=== PATIENT | female | born 1990 | race Caucasian/White ===

== ENCOUNTER 2017-08-24 09:12 | Inpatient (IN) | payer MEDICAID ==
[~2017-08-24] VITALS: Ht 167.6 cm; Wt 100.0 kg
[2017-08-24] MEDS ORDERED: D5%-LACTATED RINGERS 1,000 ML IV SCH (10:02)
[2017-08-24] MEDS ORDERED: LACTATED RINGERS 1,000 ML IV SCH (10:02)
[2017-08-24] MEDS ORDERED: OXYTOCIN 30U/ 0.9% NaCL 500ML 500 ML IV ONE (10:02)
[2017-08-24] MEDS ORDERED: PLEASE ENTER HEIGHT AND WEIGHT MC SCH (10:30)
[2017-08-24] MEDS ORDERED: TERBUTALINE 1 MG/ML, 1ML IVPush PRN (10:30)
[2017-08-24] MEDS ORDERED: FENTANYL PF 100 MCG/2ML IVPush PRN (10:30)
[2017-08-24] MEDS ORDERED: FENTANYL PF 100 MCG/2ML IV PRN (10:30)
[2017-08-24 10:41] LABS: HEMATOCRIT 37.2 % (34.6-47.8); HEMOGLOBIN 12.3 g/dL (11.7-16.4); WHITE BLOOD COUNT 10.5 x10^3/uL (3.4-10)
[2017-08-24 10:52] LABS: DAU SCREEN DISCLAIMER
[2017-08-24 10:53] VITALS: BP 124/88
[2017-08-24] MEDS ORDERED: CALCIUM CARBONATE 500 MG TAB.CHEW ONE (11:23)
[2017-08-24] MEDS ORDERED: CALCIUM CARBONATE 500 MG TAB.CHEW PO PRN (11:30)
[2017-08-24] MEDS ORDERED: LIDOCAINE-MPF 2% ,5ML ONE (13:31)
[2017-08-24] MEDS ORDERED: FENTANYL/BUPIV./NS/PF 250 ML EPIDCONT ONE (13:31)
[2017-08-24] MEDS ORDERED: LIDOCAINE/MPF 2%-EPI 1:200K, 20 ML ONE (13:32)
[2017-08-24] MEDS ORDERED: LIDOCAINE/PF 1.5%-EPI 1:200K, 30ML ONE (13:35)
[2017-08-24] MEDS ORDERED: BUPIVACAINE 0.25% ONE (13:35)
[2017-08-24] MEDS ORDERED: OXYTOCIN 30U/ 0.9% NaCL 500ML 500 ML ONE ×2 (15:11→22:08)
[2017-08-24] MEDS ORDERED: NEWBORN KIT ONE (15:18)
[2017-08-24] MEDS ORDERED: OXYTOCIN 30U/ 0.9% NaCL 500ML 500 ML IV PRN (16:52)
[2017-08-24] MEDS ORDERED: FENTANYL/BUPIV./NS/PF 250 ML EPIDCONT SCH (17:48)
[2017-08-24] MEDS: LACTATED RINGERS 1,000 ML IV SCH (17:48)
[2017-08-24] MEDS ORDERED: NALOXONE 0.4 MG/ML, 1ML IVPush PRN (18:00)
[2017-08-24] MEDS ORDERED: LACTATED RINGERS 1,000 ML IVBOLUS PRN (18:00)
[2017-08-24] MEDS ORDERED: EPHEDRINE 50 MG/ML, 1ML IVPush PRN (18:00)
[2017-08-24] MEDS ORDERED: LIDOCAINE 1%, 20ML ONE (21:17)
[2017-08-24] MEDS ORDERED: OXYTOCIN 30U/ 0.9% NaCL 500ML 500 ML IV SCH (21:26)
[2017-08-24] MEDS ORDERED: ONDANSETRON 2MG/ML, 2ML IV PRN (21:30)
[2017-08-24] MEDS ORDERED: DOCUSATE 100 MG CAPSULE PO PRN (21:30)
[2017-08-24] MEDS ORDERED: MISOPROSTOL 200 MCG TABLET PR PRN (21:30)
[2017-08-24] MEDS ORDERED: IBUPROFEN 600 MG TABLET ONE (21:36)
[2017-08-24] MEDS ORDERED: OXYcodone/APAP 5/325MG TABLET ONE (21:36)
[2017-08-24] MEDS: IBUPROFEN 600 MG TABLET PO PRN (21:41)
[2017-08-24 23:50] VITALS: BP 107/63
[2017-08-25] MEDS: LACTATED RINGERS 1,000 ML IV SCH ×2 (01:48→05:53)
[2017-08-25 03:00] VITALS: BP 95/48
[2017-08-25 05:01] LABS: HEMATOCRIT 29.6 % (34.6-47.8); HEMOGLOBIN 9.8 g/dL (11.7-16.4); WHITE BLOOD COUNT 15.6 x10^3/uL (3.4-10)
[2017-08-25 07:20] VITALS: BP 111/72
[2017-08-25] MEDS ORDERED: PRENATAL VIT/IRON/FA 1 EACH TABLET PO SCH (09:00)
[2017-08-25] MEDS: IBUPROFEN 600 MG TABLET PO PRN (09:31)
[2017-08-25 12:20] VITALS: BP 95/61
[2017-08-25 16:15] VITALS: BP 113/72
[2017-08-25 20:17] VITALS: BP 114/80
[2017-08-26 08:00] VITALS: BP 116/78
[2017-08-26] MEDS ORDERED: IBUP-1222 PO (10:39)
[2017-08-26] MEDS ORDERED: OXYC-302 PO (10:39)
== END 2017-08-26 14:00 | disposition home or self-care (01) | DRG 775 ==
LOC: LDOP 09:12 → LDIP 10:11 → 2NW 23:40 → EDSTATUS 08-26 09:12
PROVIDERS: ADMIT Obstetrics & Gynecology; ATTEND Obstetrics & Gynecology
PROC: 10E0XZZ Delivery of Products of Conception, External Approach (ICD-10-PCS; principal; 2017-08-24)
PROC: 0HQ9XZZ Repair Perineum Skin, External Approach (ICD-10-PCS; 2017-08-24)
PROC: 3E0R3BZ Introduction of Anesthetic Agent into Spinal Canal, Percutaneous Approach (ICD-10-PCS; 2017-08-24)
PROC: 00HU33Z Insertion of Infusion Device into Spinal Canal, Percutaneous Approach (ICD-10-PCS; 2017-08-24)
DX: O70.0 First degree perineal laceration during delivery (principal); Z37.0 Single live birth; Z3A.39 39 weeks gestation of pregnancy
CPT/HCPCS: 36415; 80307; 81001; 85025; 86850; 86900; J3490; G0479; J2590; J3010; J7120

== ENCOUNTER 2017-10-24 18:40 | Emergency (ER) | payer MEDICAID ==
[~2017-10-24] VITALS: Ht 167.6 cm; Wt 93.0 kg
[~2017-10-24 18:40] MED LIST: IBUP-1222 PO; OXYC-302 PO
[2017-10-24] MEDS ORDERED: BENZTROPINE 1 MG/ML, 2 ML IM ONE (19:00)
[2017-10-24] MEDS ORDERED: PLEASE ENTER HEIGHT AND WEIGHT MC SCH (19:00)
[2017-10-24 19:21] LABS: CULTURE INDICATED? NO; HCG UR SG 1.015 (1.003-1.030); MICROSCOPIC NOT IND
[2017-10-24 20:23] VITALS: BP 122/64
== END 2017-10-24 20:26 | disposition home or self-care (01) ==
LOC: ED 20:20
DX: G24.09 Other drug induced dystonia (principal); F41.1 Generalized anxiety disorder
CPT/HCPCS: 81003; 81025; 96372; 99284; J0515

== ENCOUNTER 2019-03-15 13:07 | Inpatient (IN) | payer MEDICAID ==
[~2019-03-15] VITALS: Ht 167.6 cm; Wt 96.7 kg
[2019-03-15] MEDS ORDERED: PHARMACOKINETIC CONSULTATION MC ONE ×2 (13:30→20:30)
[2019-03-15] MEDS ORDERED: SODIUM CHLORIDE FLUSH 10ML SYR IVF ONE (13:30)
[2019-03-15] MEDS ORDERED: SODIUM CHLORIDE 0.9% 1,000ML IVBOLUS ONE (13:30)
[2019-03-15] MEDS ORDERED: HYDROmorphone 1 MG/ML, 1ML INJ IVPush PRN (13:30)
[2019-03-15] MEDS ORDERED: ONDANSETRON 2MG/ML, 2ML IVPush ONE (13:30)
[2019-03-15] MEDS ORDERED: VANCOMYCIN PER PHARMACY IV ONE (13:30)
[2019-03-15] MEDS ORDERED: KETOROLAC 30 MG/1 ML IVPush ONE ×2 (13:30→14:30)
[2019-03-15 13:51] LABS: MEAN CORPUSCULAR HEMOGLOBIN 29.8 pg (27.0-34.8); MEAN CORPUSCULAR HGB CONC 33.1 g/dL (32.4-35.8); MEAN CORPUSCULAR VOLUME 90.1 fL (80-100); MEAN PLATELET VOLUME 8.7 fL (7.4-10.4); PLATELET COUNT 273 x10^3/uL (130-400); RED BLOOD COUNT 4.67 x10^6/uL (3.82-5.3); RED CELL DISTRIBUTION WIDTH 14.3 % (9.6-15.2)
[2019-03-15] MEDS ORDERED: VANCOMYCIN 1,600 MG in SODIUM CHLORIDE 0.9% 250 ML IV ONE (14:00)
[2019-03-15 14:06] LABS: ALANINE AMINOTRANSFERASE 29 U/L (12-78); ANION GAP 12 mmol/L (5-15); CALCIUM 8.5 mg/dL (8.5-10.1); CHLORIDE 103 mmol/L (98-107)
[2019-03-15 14:11] LABS: ALKALINE PHOSPHATASE 77 U/L (45-117); BILIRUBIN,TOTAL 1.7 mg/dL (0.2-1.0); CREATININE 0.72 mg/dL (0.55-1.02); TOTAL PROTEIN 7.4 g/dL (6.4-8.2)
[2019-03-15 14:28] LABS: MD YES
[2019-03-15 14:53] LABS: BAND#(MANUAL) 2.13 x10^3/uL; BANDS%(MANUAL) 10 % (0-7); LYMPH#(MANUAL) 1.49 x10^3/uL (1-3.4); LYMPHS% (MANUAL) 7 % (22-44); MONOS#(MANUAL) 0.21 x10^3/uL (0.3-2.7); MONOS% (MANUAL) 1 % (2-9); SEG#(MANUAL) 17.47 x10^3/uL (1.8-6.8); SEGS% (MANUAL) 82 % (42-75)
[2019-03-15 14:54] LABS: <PLATELET ESTIMATE> ADEQUATE; <PLT MORPHOLOGY> NORMAL PLT MORPH; <RBC MORPHOLOGY> NORMAL
--- NOTE | 2019-03-15 14:57 | NUR ---
multi iv attempts x2 rn fail, md aware. pt tolerates fair
[2019-03-15] MEDS ORDERED: LIDOCAINE PF 2%, 5ML INFIL ONE (16:00)
[2019-03-15] MEDS ORDERED: LIDOCAINE 2%, 10ML INFIL ONE (16:00)
--- NOTE | 2019-03-15 16:43 | NUR ---
to rad for picc placement
[2019-03-15] MEDS ORDERED: OMNIPAQUE 350 MG/ML, 100ML BOTTLE ONE (17:28)
[2019-03-15] MEDS ORDERED: ONDANSETRON 2MG/ML, 2ML ONE (17:33)
[2019-03-15] MEDS ORDERED: KETOROLAC 30 MG/1 ML ONE (17:33)
[2019-03-15] MEDS: SODIUM CHLORIDE 0.9% 1,000 ML IV SCH (18:37)
[2019-03-15] MEDS ORDERED: PIPERACILLIN/TAZO/PMX 3.375GM 50 ML ONE (18:41)
[2019-03-15] MEDS: PIPERACILLIN/TAZO/PMX 3.375GM 50 ML IV SCH (18:46)
--- NOTE | 2019-03-15 18:58 | NUR ---
REPORT RECIEVED FROM COURTNEY GODINEZ. PT SLEEPING ON [facility].
[2019-03-15] MEDS ORDERED: BISACODYL 10 MG SUPP PR PRN (19:00)
[2019-03-15] MEDS ORDERED: ONDANSETRON ODT 4 MG PO PRN (19:00)
[2019-03-15] MEDS ORDERED: ACETAMINOPHEN 325 MG TABLET PO PRN (19:00)
[2019-03-15] MEDS ORDERED: VANCOMYCIN PER PHARMACY MC PRN (19:00)
[2019-03-15] MEDS ORDERED: POLYETHYLENE GLYCOL 17 GM PACKET PO PRN (19:00)
--- NOTE | 2019-03-15 19:15 | NUR ---
ATTEMPTED TO CALL REPORT FOR SECOND TIME. NURSE STATES SHE WILL HAVE TO CALL BACK.
--- NOTE | 2019-03-15 19:31 | NUR ---
REPORT GIVEN TO GUCCI GODINEZ. PT TRANSPORTING TO [phone].
[2019-03-15 19:51] VITALS: BP 104/65
[2019-03-15] MEDS ORDERED: PHARMACOKINETIC MONITORING MC PRN (20:30)
[2019-03-15] MEDS: VANCOMYCIN 1,800 MG in SODIUM CHLORIDE 0.9% 250 ML IV SCH (21:29)
[2019-03-15] MEDS: KETOROLAC 30 MG/1 ML IVPush SCH (21:44)
[2019-03-15] MEDS: HEPARIN 5,000 UNITS/ML, 1ML SQ SCH (21:44)
[2019-03-15 22:28] LABS: MICROSCOPIC AUTO
[2019-03-15 22:29] LABS: AMPHETAMINE SCREEN, URINE Positive (Negative); BARBITURATE SCREEN, URINE Negative (Negative); BENZODIAZEPINE SCREEN, URINE Positive (Negative); CANNABINOID SCREEN, URINE Negative (Negative); COCAINE SCREEN, URINE Positive (Negative); METHADONE SCREEN, URINE Negative (Negative); OPIATE SCREEN, URINE Positive (Negative)
[2019-03-15 22:30] LABS: CULTURE INDICATED? NO
[2019-03-16] MEDS: PIPERACILLIN/TAZO/PMX 3.375GM 50 ML IV SCH ×4 (01:00→18:42)
[2019-03-16 02:00] VITALS: BP 105/62
[2019-03-16] MEDS: SODIUM CHLORIDE 0.9% 1,000 ML IV SCH ×2 (03:00→16:16)
[2019-03-16] MEDS: HEPARIN 5,000 UNITS/ML, 1ML SQ SCH ×3 (03:00→20:58)
[2019-03-16] MEDS: KETOROLAC 30 MG/1 ML IVPush SCH ×4 (03:30→22:46)
[2019-03-16 04:01] LABS: ALANINE AMINOTRANSFERASE 38 U/L (12-78); ALBUMIN 2.4 g/dL (3.4-5.0); ANION GAP 9 mmol/L (5-15); CALCIUM 7.9 mg/dL (8.5-10.1); CHLORIDE 108 mmol/L (98-107); CREATININE 0.65 mg/dL (0.55-1.02)
[2019-03-16 04:04] LABS: ALKALINE PHOSPHATASE 80 U/L (45-117); BILIRUBIN,TOTAL 1.3 mg/dL (0.2-1.0); TOTAL PROTEIN 6.5 g/dL (6.4-8.2)
[2019-03-16 04:18] LABS: MEAN CORPUSCULAR HEMOGLOBIN 29.4 pg (27.0-34.8); MEAN CORPUSCULAR HGB CONC 32.2 g/dL (32.4-35.8); MEAN CORPUSCULAR VOLUME 91.3 fL (80-100); MEAN PLATELET VOLUME 8.9 fL (7.4-10.4); PLATELET COUNT 181 x10^3/uL (130-400); RED BLOOD COUNT 4.49 x10^6/uL (3.82-5.3); RED CELL DISTRIBUTION WIDTH 14.3 % (9.6-15.2)
[2019-03-16 04:52] LABS: MD YES
[2019-03-16 04:57] LABS: <PLATELET ESTIMATE> ADEQUATE; <PLT MORPHOLOGY> NORMAL PLT MORPH; <RBC MORPHOLOGY> NORMAL; BAND#(MANUAL) 1.59 x10^3/uL; BANDS%(MANUAL) 10 % (0-7); LYMPH#(MANUAL) 0.64 x10^3/uL (1-3.4); LYMPHS% (MANUAL) 4 % (22-44); SEG#(MANUAL) 13.67 x10^3/uL (1.8-6.8); SEGS% (MANUAL) 86 % (42-75)
[2019-03-16 06:37] VITALS: BP 119/82
[2019-03-16] MEDS: VANCOMYCIN 1,800 MG in SODIUM CHLORIDE 0.9% 250 ML IV SCH ×2 (08:42→20:57)
[2019-03-16] MEDS: SENNA/DOCUSATE TABLET PO SCH (09:00)
[2019-03-16] MEDS: LACTOBACILLUS CHEW TABLET PO SCH ×3 (09:30→20:57)
[2019-03-16] MEDS: LORazepam 2 MG/ML, 1ML IVPush PRN ×4 (10:12→20:57)
[2019-03-16 13:35] VITALS: BP 131/88
[2019-03-16] MEDS ORDERED: morphine SULFATE 10 MG/ML, 1ML IVPush PRN (14:00)
[2019-03-16 18:38] VITALS: BP 133/88
[2019-03-17 00:45] VITALS: BP 131/84
[2019-03-17] MEDS: LORazepam 2 MG/ML, 1ML IVPush PRN ×4 (00:50→20:06)
[2019-03-17] MEDS: PIPERACILLIN/TAZO/PMX 3.375GM 50 ML IV SCH ×4 (00:50→19:39)
[2019-03-17] MEDS: KETOROLAC 30 MG/1 ML IVPush SCH ×4 (04:08→21:16)
[2019-03-17] MEDS: HEPARIN 5,000 UNITS/ML, 1ML SQ SCH ×3 (04:08→21:16)
[2019-03-17] MEDS: SODIUM CHLORIDE 0.9% 1,000 ML IV SCH ×3 (04:08→22:00)
[2019-03-17 04:57] LABS: BASOPHILS # (AUTO) 0.01 x10^3/uL (0-0.1); BASOPHILS % (AUTO) 0 % (0-1); EOSINOPHILS % (AUTO) 0 % (1-7); LYMPHOCYTES % (AUTO) 4 % (22-44); MD NO; MEAN CORPUSCULAR HEMOGLOBIN 29.1 pg (27.0-34.8); MEAN CORPUSCULAR HGB CONC 32.4 g/dL (32.4-35.8); MEAN CORPUSCULAR VOLUME 89.8 fL (80-100); MEAN PLATELET VOLUME 9.1 fL (7.4-10.4); MONOCYTES % (AUTO) 5 % (2-9); NEUTROPHILS # (AUTO) 13.85 x10^3/uL (1.8-6.8); NEUTROPHILS % (AUTO) 91 % (42-75); PLATELET COUNT 194 x10^3/uL (130-400); RED BLOOD COUNT 4.21 x10^6/uL (3.82-5.3); RED CELL DISTRIBUTION WIDTH 14.1 % (9.6-15.2)
[2019-03-17 05:06] LABS: ALANINE AMINOTRANSFERASE 26 U/L (12-78); ALBUMIN 2.3 g/dL (3.4-5.0); ANION GAP 6 mmol/L (5-15); CALCIUM 8.1 mg/dL (8.5-10.1); CHLORIDE 111 mmol/L (98-107)
[2019-03-17 05:07] LABS: ALKALINE PHOSPHATASE 76 U/L (45-117); BILIRUBIN,TOTAL 0.7 mg/dL (0.2-1.0); TOTAL PROTEIN 6.3 g/dL (6.4-8.2)
[2019-03-17] MEDS: VANCOMYCIN 1,800 MG in SODIUM CHLORIDE 0.9% 250 ML IV SCH ×2 (08:33→21:16)
[2019-03-17 08:39] VITALS: BP 125/82
[2019-03-17] MEDS: SENNA/DOCUSATE TABLET PO SCH (09:00)
[2019-03-17] MEDS: LACTOBACILLUS CHEW TABLET PO SCH ×3 (09:55→20:05)
[2019-03-17] MEDS ORDERED: POTASSIUM CHLORIDE 20 MEQ TAB.ER.PRT PO ONE (10:30)
[2019-03-17] MEDS ORDERED: CHLORDIAZEPOXIDE 25 MG CAPSULE PO SCH (10:30)
[2019-03-17 12:56] VITALS: BP 106/69
[2019-03-17 20:01] VITALS: BP 126/85
[2019-03-18] MEDS: PIPERACILLIN/TAZO/PMX 3.375GM 50 ML IV SCH ×4 (01:21→19:44)
[2019-03-18 04:31] VITALS: BP 126/85
[2019-03-18] MEDS: KETOROLAC 30 MG/1 ML IVPush SCH ×4 (05:04→21:27)
[2019-03-18] MEDS: HEPARIN 5,000 UNITS/ML, 1ML SQ SCH ×3 (05:05→21:27)
[2019-03-18] MEDS: LORazepam 2 MG/ML, 1ML IVPush PRN ×3 (05:05→19:44)
[2019-03-18 05:52] LABS: ANION GAP 6 mmol/L (5-15); CHLORIDE 112 mmol/L (98-107)
[2019-03-18 05:56] LABS: BASOPHILS # (AUTO) 0.03 x10^3/uL (0-0.1); BASOPHILS % (AUTO) 0 % (0-1); EOSINOPHILS # (AUTO) 0.02 x10^3/uL (0-0.4); EOSINOPHILS % (AUTO) 0 % (1-7); LYMPHOCYTES # (AUTO) 1.23 x10^3/uL (1-3.4); LYMPHOCYTES % (AUTO) 11 % (22-44); MD NO; MEAN CORPUSCULAR HEMOGLOBIN 29.1 pg (27.0-34.8); MEAN CORPUSCULAR HGB CONC 32.3 g/dL (32.4-35.8); MEAN CORPUSCULAR VOLUME 89.9 fL (80-100); MEAN PLATELET VOLUME 9.5 fL (7.4-10.4); MONOCYTES % (AUTO) 8 % (2-9); NEUTROPHILS # (AUTO) 9.24 x10^3/uL (1.8-6.8); NEUTROPHILS % (AUTO) 81 % (42-75); PLATELET COUNT 233 x10^3/uL (130-400); RED BLOOD COUNT 4.25 x10^6/uL (3.82-5.3)
[2019-03-18] MEDS ORDERED: POTASSIUM CHLORIDE 20 MEQ TAB.ER.PRT PO ONE (08:30)
[2019-03-18] MEDS: SENNA/DOCUSATE TABLET PO SCH (09:00)
[2019-03-18] MEDS: VANCOMYCIN 1,800 MG in SODIUM CHLORIDE 0.9% 250 ML IV SCH (09:28)
[2019-03-18] MEDS: LACTOBACILLUS CHEW TABLET PO SCH ×3 (09:29→21:27)
[2019-03-18 09:43] VITALS: BP 113/73
[2019-03-18 13:34] VITALS: BP 112/63
[2019-03-18] MEDS: NICOTINE 21 MG/24 HR PATCH.TD24 TD SCH (14:59)
[2019-03-18 18:34] VITALS: BP 116/78
[2019-03-18] MEDS: VANCOMYCIN 2,000 MG in SODIUM CHLORIDE 0.9% 500 ML IV SCH (21:27)
[2019-03-18] MEDS ORDERED: DIPHENHYDRAMINE 50 MG CAPSULE ONE (22:29)
[2019-03-18] MEDS: DIPHENHYDRAMINE 50 MG CAPSULE PO PRN (22:31)
[2019-03-19] MEDS: PIPERACILLIN/TAZO/PMX 3.375GM 50 ML IV SCH ×3 (02:33→15:11)
[2019-03-19] MEDS: LORazepam 2 MG/ML, 1ML IVPush PRN ×4 (02:39→23:32)
[2019-03-19] MEDS: KETOROLAC 30 MG/1 ML IVPush SCH ×4 (05:21→21:45)
[2019-03-19] MEDS: HEPARIN 5,000 UNITS/ML, 1ML SQ SCH ×3 (05:21→21:45)
[2019-03-19 05:29] VITALS: BP 130/89
[2019-03-19 05:56] LABS: BASOPHILS # (AUTO) 0.05 x10^3/uL (0-0.1); BASOPHILS % (AUTO) 0 % (0-1); EOSINOPHILS # (AUTO) 0.03 x10^3/uL (0-0.4); EOSINOPHILS % (AUTO) 0 % (1-7); LYMPHOCYTES # (AUTO) 1.42 x10^3/uL (1-3.4); LYMPHOCYTES % (AUTO) 12 % (22-44); MD NO; MEAN CORPUSCULAR HEMOGLOBIN 28.9 pg (27.0-34.8); MEAN CORPUSCULAR HGB CONC 32.1 g/dL (32.4-35.8); MEAN PLATELET VOLUME 9.2 fL (7.4-10.4); MONOCYTES # (AUTO) 1.02 x10^3/uL (0.2-0.8); MONOCYTES % (AUTO) 9 % (2-9); NEUTROPHILS # (AUTO) 9.16 x10^3/uL (1.8-6.8); NEUTROPHILS % (AUTO) 79 % (42-75); PLATELET COUNT 235 x10^3/uL (130-400); RED BLOOD COUNT 4.21 x10^6/uL (3.82-5.3); RED CELL DISTRIBUTION WIDTH 14.3 % (9.6-15.2)
[2019-03-19 06:12] LABS: ANION GAP 5 mmol/L (5-15); CHLORIDE 112 mmol/L (98-107)
[2019-03-19 06:14] LABS: CREATININE 0.85 mg/dL (0.55-1.02)
[2019-03-19] MEDS ORDERED: POTASSIUM CHLORIDE 20 MEQ TAB.ER.PRT PO ONE (08:00)
[2019-03-19 08:35] VITALS: BP 117/76
[2019-03-19] MEDS: LACTOBACILLUS CHEW TABLET PO SCH ×3 (08:46→21:45)
[2019-03-19] MEDS: SENNA/DOCUSATE TABLET PO SCH (08:46)
[2019-03-19] MEDS: VANCOMYCIN 2,000 MG in SODIUM CHLORIDE 0.9% 500 ML IV SCH (10:00)
[2019-03-19 13:16] VITALS: BP 111/72
[2019-03-19] MEDS: NICOTINE 21 MG/24 HR PATCH.TD24 TD SCH (15:11)
[2019-03-19] MEDS ORDERED: SULF1TAB24 PO (17:27)
[2019-03-19] MEDS ORDERED: CEPH-368 PO (17:27)
[2019-03-19] MEDS ORDERED: ACID1TAB7 PO (17:27)
[2019-03-19 19:57] VITALS: BP 128/87
[2019-03-19] MEDS ORDERED: SULFAMETH./TRIMETHOPRIM DS 800MG/160MG TABLET PO SCH (21:00)
[2019-03-19] MEDS: CEPHALEXIN 500 MG CAPSULE PO SCH (21:45)
[2019-03-19] MEDS: DIPHENHYDRAMINE 50 MG CAPSULE PO PRN (21:45)
[2019-03-20] MEDS: LORazepam 2 MG/ML, 1ML IVPush PRN (04:58)
[2019-03-20] MEDS: KETOROLAC 30 MG/1 ML IVPush SCH ×2 (04:58→09:57)
[2019-03-20] MEDS: HEPARIN 5,000 UNITS/ML, 1ML SQ SCH (04:58)
[2019-03-20] MEDS: CEPHALEXIN 500 MG CAPSULE PO SCH (04:58)
[2019-03-20 05:00] VITALS: BP 128/86
[2019-03-20 08:13] VITALS: BP 114/77
[2019-03-20] MEDS: SENNA/DOCUSATE TABLET PO SCH (08:29)
[2019-03-20] MEDS: LACTOBACILLUS CHEW TABLET PO SCH (09:00)
[2019-03-20] MEDS ORDERED: POTASSIUM CHLORIDE 40 MEQ in SODIUM CHLORIDE 0.9% 500 ML IV ONE (09:30)
[2019-03-20] MEDS ORDERED: POTASSIUM CHLORIDE 20 MEQ TAB.ER.PRT PO ONE (09:30)
[2019-03-20] MEDS ORDERED: IBUP-1221 PO (09:32)
[2019-03-20] MEDS ORDERED: DOXY100T PO (09:32)
[2019-03-20] MEDS ORDERED: CEFD300C37 PO (09:32)
== END 2019-03-20 11:17 | disposition home or self-care (01) | DRG 872 ==
LOC: ED 18:09 → EDIP 18:36 → 4WST 19:48
PROVIDERS: ADMIT Family Medicine; ATTEND Family Medicine
PROC: 02HV33Z Insertion of Infusion Device into Superior Vena Cava, Percutaneous Approach (ICD-10-PCS; principal; 2019-03-15)
PROC: B5181ZA Fluoroscopy of Superior Vena Cava using Low Osmolar Contrast, Guidance (ICD-10-PCS; 2019-03-15)
PROC: B548ZZA Ultrasonography of Superior Vena Cava, Guidance (ICD-10-PCS; 2019-03-15)
DX: A41.9 Sepsis, unspecified organism (principal); E87.1 Hypo-osmolality and hyponatremia; L03.115 Cellulitis of right lower limb; F11.10 Opioid abuse, uncomplicated; F41.1 Generalized anxiety disorder; M72.9 Fibroblastic disorder, unspecified; E66.9 Obesity, unspecified; Z68.34 Body mass index [BMI] 34.0-34.9, adult
CPT/HCPCS: 36415; 36573; 71045; 80048; 80053; 80074; 80202; 80307; 81001; 83605; 84145; 84703; 85025; 85379; 87040; 87806; 93005; 99291; G0378; J1644; J1885; J2405; J2543; J3370; Q0162; Q9967; C1751; G0475; J2060; J7030; J7040; J7050

== ENCOUNTER 2019-08-19 18:00 | Emergency (ER) | payer MEDICAID ==
[~2019-08-19] VITALS: Ht 167.6 cm; Wt 107.0 kg
[~2019-08-19 18:00] MED LIST changes: +ACID1TAB7 PO; +CEFD300C37 PO; +CEPH-368 PO; +DOXY100T PO; +IBUP-1221 PO; +SULF1TAB24 PO
--- NOTE | 2019-08-19 18:29 | NUR ---
PT BIB EMS, FOUND IN DRIVEWAY UNRESPONSIVE 2/2 HEROINE OD. 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 PT IS TEARFUL AND BECOMES EVEN MORE UPSET WHEN TALKING ABOUT HER SON WHO SHE LOST TO ADOPTION BY HIS FOSTER FAMILY. PT STATES SHE IS A RESIDENT AT [facility] AND HAD BEEN CLEAN FOR 30 DAYS. STATES THEY TOOK HER OFF OF [employer] AND HAS BEEN OFF FOR PAST WEEK. SHE STATES THAT SHE WAS FEELING DESPERATE. ADMITS TO DRINKING TODAY. "I ALWAYS DO THIS WHEN I DRINK" 2 ATTEMPTS MADE AT IV STARTS W/O SUCCESS. DR BENJAMIN AWARE. PT PLACED ON ETC02 MONITORING. BLOW [place] AT BESIDE. PT TO BE PLACED ON LEGAL HOLD FOR SA.
[2019-08-19] MEDS ORDERED: NALOXONE 1 MG/ML, 2ML ONE (18:54)
[2019-08-19] MEDS ORDERED: IBUPROFEN 600 MG TABLET PO ONE (19:00)
[2019-08-19 19:07] LABS: BASOPHILS # (AUTO) 0.14 x10^3/uL (0-0.1); BASOPHILS % (AUTO) 2 % (0-1); EOSINOPHILS # (AUTO) 0.13 x10^3/uL (0-0.4); EOSINOPHILS % (AUTO) 2 % (1-7); LYMPHOCYTES # (AUTO) 1.35 x10^3/uL (1-3.4); LYMPHOCYTES % (AUTO) 18 % (22-44); MD NO; MEAN CORPUSCULAR HEMOGLOBIN 30.6 pg (27.0-34.8); MEAN CORPUSCULAR VOLUME 92.6 fL (80-100); MEAN PLATELET VOLUME 8.4 fL (7.4-10.4); MONOCYTES # (AUTO) 0.37 x10^3/uL (0.2-0.8); MONOCYTES % (AUTO) 5 % (2-9); NEUTROPHILS # (AUTO) 5.71 x10^3/uL (1.8-6.8); NEUTROPHILS % (AUTO) 74 % (42-75); PLATELET COUNT 301 x10^3/uL (130-400); RED BLOOD COUNT 4.67 x10^6/uL (3.82-5.3); RED CELL DISTRIBUTION WIDTH 15.4 % (9.6-15.2)
[2019-08-19 19:18] LABS: ALANINE AMINOTRANSFERASE 47 U/L (12-78); ALBUMIN 4.2 g/dL (3.4-5.0); ANION GAP 6 mmol/L (5-15); CALCIUM 8.4 mg/dL (8.5-10.1); CHLORIDE 107 mmol/L (98-107); CREATININE 1.17 mg/dL (0.55-1.02)
[2019-08-19 19:21] LABS: ALKALINE PHOSPHATASE 62 U/L (45-117); BILIRUBIN,TOTAL 0.2 mg/dL (0.2-1.0); TOTAL PROTEIN 8.5 g/dL (6.4-8.2)
[2019-08-19 19:25] LABS: SALICYLATE LEVEL < 1.7 mg/dL (2.8-20.0)
--- NOTE | 2019-08-19 19:26 | NUR ---
PT OOB AND USED PHONE TO CALL HER PEANUT VENDOR AND FATHER. PT NOW REQUESTING TO CALL HER BROTHER. I ASKED HER TO NOT GET OOB AND GIVE US SOME TIME TO GET HER MEDICALLY CLEARED AND TRANSFERED INTO ANOTHER ED ROOM WHERE SHE COULD THEN MAKE ADDITIONAL PHONE CALLS. PT REMOVED ALL [facility] SOCKS AND MESH UNDERWEAR PROVIDED. PT TOLLERATING ICE CHIPS AND REMAINS A&[address] BENJAMIN UPDATED.
--- NOTE | 2019-08-19 19:36 | NUR ---
DISCUSSED POC WITH DR BENJAMIN, OK TO MORE PT TO LOWER LEVEL OF CARE. PT TO MOVE TO ROOM 38.
--- NOTE | 2019-08-19 19:38 | NUR ---
PTS BELONGINGS IN 1 BAG, LABELED AND PLACED IN PT LOCKER.
--- NOTE | 2019-08-19 19:38 | NUR ---
MESH CUTTER, DEL TRANUBBS [phone], PT AND S.W. REQUEST PT TO TRANSFER TO [facility] ONCE MEDICALLY CLEARED.
[2019-08-19] MEDS ORDERED: BUPR-86 PO (19:44)
[2019-08-19] MEDS ORDERED: [UNRECOGNIZED DRUG - OTHER] PO (19:44)
[2019-08-19] MEDS ORDERED: MIRT15TA PO (19:44)
[2019-08-19] MEDS ORDERED: SERT100T PO (19:44)
[2019-08-19] MEDS ORDERED: GABA600T7 PO (19:44)
--- NOTE | 2019-08-19 19:52 | NUR ---
PT PROVIDED WITH TURKEY SANDWICH AND APPLE JUICE FROM THE [employer]EE [employer].
--- NOTE | 2019-08-19 20:06 | NUR ---
PT MOVED TO ROOM 38, SBAR RPT TO HERBERT PATEL. ASSESSMENT REV AND QUESTIONS ANSWERED. PT AMBULATORY TO ROOM 38.
--- NOTE | 2019-08-19 20:15 | NUR ---
ASSUMED CARE. THE PT WILL NOT LEAVE THE MONITORING EQUIPMENT ON. THE PT IS FULLY AWAKE AND ALERT, DEMANDING.
--- NOTE | 2019-08-19 20:18 | NUR ---
ETCO2 50.
--- NOTE | 2019-08-19 20:57 | NUR ---
UP TO USE THE HALLWAY PHONE.
--- NOTE | 2019-08-19 21:11 | NUR ---
DEFIANT. THE PT CONT TO PULL THE CURTAIN OVER WHEN THE STAFF HAS EXPLAINED THAT SHE NEEDS TO BE MONITORED PER THE SA PROTOCOL. " OH MY GOD THIS IS SO STUPID!!".
--- NOTE | 2019-08-19 21:17 | NUR ---
AWAKE. IN BED. NO C/O AT THIS TIME. 1:1 AT THE DOOR.
--- NOTE | 2019-08-19 21:42 | NUR ---
AWAKE ASKING FOR SPRITE. TAKEN SPRITE.
--- NOTE | 2019-08-19 21:44 | NUR ---
NEED UA. PT REMINDED.
--- NOTE | 2019-08-19 21:59 | NUR ---
UP TO THE BR TO VOID. UA COLLECTED AND TAKEN TO THE LAB.
--- NOTE | 2019-08-19 22:01 | NUR ---
UP TO USE THE PHONE. INST THIS WILL BE THE LAST CALL AND FOR 15 MIN. THE PT STATED " WHY MOM?! "
--- NOTE | 2019-08-19 22:06 | NUR ---
AWAKE RESTLESS. " I WANT SOMETHING TO HELP ME SLEEP ".
[2019-08-19 22:19] LABS: AMPHETAMINE SCREEN, URINE Positive (Negative); BARBITURATE SCREEN, URINE Negative (Negative); BENZODIAZEPINE SCREEN, URINE Negative (Negative); CANNABINOID SCREEN, URINE Negative (Negative); COCAINE SCREEN, URINE Negative (Negative); METHADONE SCREEN, URINE Positive (Negative); OPIATE SCREEN, URINE Positive (Negative)
--- NOTE | 2019-08-19 22:21 | NUR ---
THE PT IS INSISTENT THAT THE STAFF GO TO GET HER SOMETING TO EAT "I AM HUNGRY AND I KNOW YOUR CAFETERIA IS OPEN 24 HOURS". THE PT WAS INFORMED OF THE COFFEE CART HOURS. THE PT REFUSED OFFERS OF LIGHT SNACKS HERE. " HOW CAN YOU DO THAT TO ME WHEN I HAVE NOT EATEN FOR TWO DAYS ". THE PT WAS GIVEN A SANDWICH AND APPLE JUICE AT TRANSFER FROM T4 TO ROOM 38 AND ATE 100%.
--- NOTE | 2019-08-19 22:44 | NUR ---
IN BED. SAFE. RESP ARE EVEN AND NON-LABORED. NO DISTRESS. NO C/O. 1:1 AT THE DOOR.
--- NOTE | 2019-08-19 23:00 | NUR ---
CALL SYSTEM COVERED AT THE PT REQUEST DUE TO LOUD INTERCOM.
--- NOTE | 2019-08-19 23:40 | NUR ---
IN BED. SAFE. RESP ARE EVEN AND NON-LABORED. NO DISTRESS. NO C/O. 1:1 AT THE DOOR.
--- NOTE | 2019-08-20 00:03 | NUR ---
AWAKE. UP TO THE BR TO VOID. NO DISTRESS. GAIT IS SLOW AND STEADY.
--- NOTE | 2019-08-20 00:24 | NUR ---
THE PT WAS TAKEN A MEAL FROM THE [employer]EE [employer]: HAM SAND, GRAPES, CHIPS, AND A PINK LEMONADE.
--- NOTE | 2019-08-20 01:05 | NUR ---
FINISHED 100 % OF LATE MEAL. IN BED. SAFE. RESP ARE EVEN AND NON-LABORED. NO DISTRESS. NO C/O. 1:1 AT THE DOOR.
--- NOTE | 2019-08-20 02:08 | NUR ---
IN BED AWAKE. SAFE. RESP ARE EVEN AND NON-LABORED. NO DISTRESS. NO C/O. 1:1 AT THE DOOR.
--- NOTE | 2019-08-20 02:41 | NUR ---
IN BED AWAKE. SAFE. RESP ARE EVEN AND NON-LABORED. NO DISTRESS. NO C/O. 1:1 AT THE DOOR.
--- NOTE | 2019-08-20 03:44 | NUR ---
IN BED AWAKE. SAFE. RESP ARE EVEN AND NON-LABORED. NO DISTRESS. NO C/O. 1:1 AT THE DOOR.
--- NOTE | 2019-08-20 04:09 | NUR ---
pt packet faxed to [facility], [facility], AND [facility] PER PT INSURANCE
--- NOTE | 2019-08-20 04:52 | NUR ---
IN BED AWAKE. SAFE. RESP ARE EVEN AND NON-LABORED. NO DISTRESS. NO C/O. 1:1 AT THE DOOR.
--- NOTE | 2019-08-20 06:18 | NUR ---
IN BED, EYES CLOSED. SAFE. RESP ARE EVEN AND NON-LABORED. NO DISTRESS. NO C/O. 1:1 AT THE DOOR.
--- NOTE | 2019-08-20 06:29 | NUR ---
ROUNDS COMPLETED. PT IN BED. MOVEMENT NOTE. NO DISTRESS. ABLE TO MOVE SELF IN BED. NO C/O AT THIS TIME.
--- NOTE | 2019-08-20 06:39 | NUR ---
CAROL NURSE FROM [facility] CALLED FOR NURSE TO NURSE REPORT. REPORT GIVEN W/ VS FROM 2129 LAST NOC. THE RECEIVING NURSE INSISTED ON A NEW SET OF VS. THE PT WAS AWAKENED AND A NEW SET OF VS WAS TAKEN AND REPORT. REPORT COMPLETED, QUESTIONS ANS.
[2019-08-20 06:41] VITALS: BP 108/62
--- NOTE | 2019-08-20 07:00 | NUR ---
Note radhaone in EDM - 08/20/19 at 0718 by CHARLIE REPORT RECIEVED FROM AMANDA RN, CARE ASSUMED OF PT. PT RESTING IN BED AT THIS TIME, VSS. PT SLEEPING ON BED, VISIBLE CHEST RISE AND FALL, PER NOC RN REPORT PT REFUSING AND BECOMES AGITATED IF PLACED ON MONITORING EQUIPMENT, LAST VS TAKEN 640 PER NOC RN, PT AWAKE AND RESPONSIVE AT THAT TIME. SITTER IN VIEW OF PT
--- NOTE | 2019-08-20 08:42 | NUR ---
MAYRA CALLED TO ASSIST WITH GARAGE DOOR TO SECURE RM
--- NOTE | 2019-08-20 09:19 | NUR ---
AWAITING TRANSPORT TO [facility], PT WITH NO NEEDS AT THIS TIME
--- NOTE | 2019-08-20 09:42 | NUR ---
REPORT GIVEN TO [facility], PT BELONGINGS RETURNED, PT IN STABLE CONDITION ON TRANSPORT.
== END 2019-08-20 09:45 ==
LOC: ED 08-20 04:04
DX: R45.851 Suicidal ideations (principal); T40.1X1A Poisoning by heroin, accidental (unintentional), initial encounter; F17.200 Nicotine dependence, unspecified, uncomplicated; Y92.9 Unspecified place or not applicable
CPT/HCPCS: 36415; 71045; 80053; 80307; 84703; 85025; 93005; 99285

== ENCOUNTER 2019-11-22 05:32 | Emergency (ER) | payer MEDICAID ==
[~2019-11-22] VITALS: Ht 167.6 cm; Wt 107.9 kg
[~2019-11-22 05:32] MED LIST changes: +BUPR-86 PO; +GABA600T7 PO; +MIRT15TA PO; +SERT100T PO; +[UNRECOGNIZED DRUG - OTHER] PO
[2019-11-22 05:43] VITALS: BP 103/70
--- NOTE | 2019-11-22 06:05 | NUR ---
Pt not in room at this time
--- NOTE | 2019-11-22 06:17 | NUR ---
Pt not in room at this time
[2019-11-22] MEDS ORDERED: DIPH,PERTUSS(ACELL),TET VAC/PF 0.5 ML IM-VACC ONE ×2 (06:30→06:42)
[2019-11-22] MEDS ORDERED: NEOSPORIN OINT. PKT 1 PACKET ONE (06:42)
--- NOTE | 2019-11-22 06:59 | NUR ---
REPORT RECEIVED FROM SIOBHAN RN, ASSUMED CARE OF PT AT THIS TIME.
--- NOTE | 2019-11-22 08:31 | NUR ---
PT REFUSING TO SIGN DC PAPERWORK, STATES "WHY CANT YOU JUST WAIT, I HAVE A HEADACHE AND CANT MOVE." PT NEEDING FREQUENT REMINDING TO GET UP AND GET DRESSED.
== END 2019-11-22 08:48 | disposition home or self-care (01) ==
LOC: ED 06:35
DX: S61.215A Laceration without foreign body of left ring finger without damage to nail, initial encounter (principal); L02.415 Cutaneous abscess of right lower limb; L03.114 Cellulitis of left upper limb; L03.113 Cellulitis of right upper limb; F11.129 Opioid abuse with intoxication, unspecified; F15.929 Other stimulant use, unspecified with intoxication, unspecified; F17.210 Nicotine dependence, cigarettes, uncomplicated; W45.8XXA Other foreign body or object entering through skin, initial encounter; Y93.89 Activity, other specified; Y92.89 Other specified places as the place of occurrence of the external cause; Y99.8 Other external cause status
CPT/HCPCS: 90471; 90715; 99283